=== PATIENT | male | born 1960 | race Caucasian/White ===

== ENCOUNTER 2017-05-10 10:51 | Emergency (ER) | payer BC, OTHER ==
[~2017-05-10] VITALS: Ht 170.2 cm; Wt 84.6 kg
[~2017-05-10 10:51] MED LIST: LORA10CA2 PO; PHEN1POW90 PO
[2017-05-10 10:57] VITALS: TEMP 36.6; Ht 170.2 cm; Wt 84.6 kg
[2017-05-10 11:05] VITALS: O2SAT 95
[2017-05-10 12:14] LABS: BUN/CREATININE RATIO 18.5 (10-20); CREATININE 0.84 mg/dl (0.60-1.40)
--- NOTE | 2017-05-10 12:17 | EMERGENCY ROOM VISIT NOTE ---
History Report prepared by Hesham: Mackenzie Huggins Under the Supervision of: Dr. Julio Cesar Cisneros M.D. First contact with patient: 11:25 Chief Complaint: ALTERED MENTAL STATUS Stated Complaint: LETHARGIC Nursing Triage Summary: pt arrives via ALS per ALS pt was found unresponsive in car he was removed from car found have fixed and dilated pupils was sweaty, lethargic and found to be incontinent In route per EMS he became more alert, was stating he took two Oxycodone two hours before leaving his house to go to get gas He is awake alert and oriented at this time He speech is slurred and he is searching for words He reports no pain He is 77% on RA, 3L applied to increase sats @ 94% History of Present Illness The patient is a 57 year old male who presents to the Emergency Room with complaints of an episode of severe altered mental status starting prior to arrival. According to EMS, the patient was found unresponsive in his car and had fixed dilated pupils. The patient states that he was getting gas. He states that he was very tired this morning because he didn't sleep well last night. The patient notes that he took his Oxycodone for his chronic back pain. He notes that they are 20 mg and he normally only takes 5 a day. The patient denies the use of alcohol, abdominal pain, and thoughts of wanting to hurt himself or others. Source of History: patient, EMS Onset: prior to arrival Position: other (global) Symptom Intensity: severe Quality: other (global) Timing: other (episode) Associated Symptoms: + fatigue, No abdominal pain Note: The patient denies the use of alcohol and wanting to hurt himself or others. Review of Systems See HPI for pertinent positives and negatives. A total of ten systems were reviewed and were otherwise negative. Past Medical & Surgical Medical Problems: (1) Esophageal Reflux (2) Lumbago (3) Spinal Stenosis-Lumbar Family History Patient reports no known family medical history. Social History Smoking Status: Current Every Day Smoker Alcohol Use: none Drug Use: none Marital Status: Housing Status: lives with significant other Occupation Status: employed Current/Historical Medications Scheduled Gabapentin (Neurontin), 300 MG PO BID Ranitidine (Zantac), 150 MG PO BID Scheduled PRN Oxycodone Hcl (Oxycodone Hcl), 20 MG PO 5XD PRN for Pain Allergies Coded Allergies: Hydrocodone (Verified Allergy, Intermediate, HIVES, 02/02/15) Acetaminophen (Verified Allergy, Unknown, HIVES, 02/02/15) Penicillins (Verified Allergy, Unknown, 02/02/15) Morphine (Verified Adverse Reaction, Unknown, GI SYMPTOMS, 02/02/15) Physical Exam Vital Signs Date Time Temp Pulse Resp B/P (MAP) Pulse Ox O2 Delivery O2 Flow Rate FiO2 05/10/17 14:26 76 18 124/86 96 Room Air 05/10/17 13:19 84 05/10/17 13:00 73 14 131/90 94 Nasal Cannula 3.0 05/10/17 12:29 81 16 122/76 94 Room Air 05/10/17 11:10 92 05/10/17 11:05 77 Room Air 05/10/17 11:05 95 Nasal Cannula 3.0 05/10/17 10:57 36.6 94 16 145/100 77 Room Air Physical Exam GENERAL: Drowsy, arousable to loud voice, well-appearing, in no distress HENT: Normocephalic, atraumatic. Dry mucus membranes. EYES: Normal conjunctiva. Sclera non-icteric. Pupils 2mm are sluggish but do react. NECK: Supple. No nuchal rigidity. FROM. No JVD. RESPIRATORY: Clear to auscultation. CARDIAC: Regular rate, normal rhythm. Extremities warm and well perfused. Pulses equal. ABDOMEN: Soft, non-distended. No tenderness to palpation. No rebound or guarding. No masses. RECTAL: Deferred. MUSCULOSKELETAL: Chest examination reveals no tenderness. The back is symmetrical on inspection without obvious abnormality. There is no CVA tenderness to palpation. No joint edema. LOWER EXTREMITIES: Calves are equal size bilaterally and non-tender. No edema. No discoloration. NEURO: Normal sensorium. No sensory or motor deficits noted. Mild slurred speech. No clonus or hyperreflexia. SKIN: Warm, dry No rash or jaundice noted. Medical Decision & Procedures Laboratory Results 05/10/17 10:40 Test 05/10/17 10:40 05/10/17 12:03 Anion Gap 5.0 mmol/L (3-11) Est Creatinine Clear Calc Drug Dose 103.3 ml/min Estimated GFR () 114.2 Estimated GFR (Non- 98.6 BUN/Creatinine Ratio 18.5 (10-20) Calcium Level 9.0 mg/dl (8.5-10.1) Salicylates Level 6.3 mg/dl (2.8-20) Acetaminophen Level < 2 ug/ml (10-30) Ethyl Alcohol mg/dL < 3.0 mg/dl (0-3) Laboratory results reviewed by me ECG Indication: altered mental status Rate (beats per minute): 100 Rhythm: normal sinus Findings: RBBB, other (normal axis) Comparison ECG Date: 07/07/2009 Change: RBBB new. ED Course 1132: The patient was evaluated in room C6. A complete history and physical exam was performed. 1357: I reevaluated the patient and he is doing well. 1427: I reevaluated the patient. Discussed results and discharge instructions: He verbalized understanding and agreement. The patient is ready for discharge. Medical Decision I reviewed the patient's past medical history, medications, and the nursing notes as described above. Differential diagnoses include accidental overdose on narcotics, polysubstance abuse, alcohol intoxication, infection pulmonary vs urinary, meningitis, intracranial hemorrhage. Patient is a 57-year-old gentleman with a past medical history of chronic pain presents to emergency department after being found in his car unresponsive with constricted and sluggish pupils are history of present illness. Arrival the patient is arousable to loud voice with 2 mm pupils that are sluggish. Otherwise patient's exam is unremarkable with no clonus, skin warm dry, no rigidity or hyperreflexia concerning for alternate toxidrome. Exam most consistent with narcotic overdose. Patient reports taking his regular dose of 20 mg of oxycodone early in the morning thinks he did not sleep well last night and thus was particularly tired. Further questioning patient reported that he did stop by a friend's house and had coffee but recalls that his friend had company who he feels he did not know well and may have placed something in his drink. Otherwise patient's labs were unremarkable. EKG with right bundle branch block that is new from 2008. The patient denies any chest pain shortness of breath nausea or vomiting. 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 He expresses understanding. Findings and plan for follow-up d/w patient. Patient agreeable and d/c'd per discharge instructions. Impression Primary Impression: Drug overdose Scribe Attestation The scribe's documentation has been prepared under my direction and personally reviewed by me in its entirety. I confirm that the note above accurately reflects all work, treatment, procedures, and medical decision making performed by me. Departure Information Dispostion Home / Self-Care Referrals No Doctor, Assigned (PCP) Forms HOME CARE DOCUMENTATION FORM, IMPORTANT VISIT INFORMATION Patient Instructions ED Overdose Accidental, My [facility] Additional Instructions Please follow up with your primary care physician in the next 1-3 days. You improved and your exam, ekg, and lab results did not show signs of an emergent condition at this time. Take only your prescribed medications as directed and do not drive when doing so. Return to the emergency department for worsening symptoms as described in the accompanying instructions.
[2017-05-10 12:22] LABS: ACETAMINOPHEN < 2 ug/ml (10-30)
[2017-05-10] MEDS ORDERED: OXYC20TA32 PO (13:56)
[2017-05-10] MEDS ORDERED: ZNTT/150 PO (13:56)
[2017-05-10] MEDS ORDERED: GABA-113 PO (13:56)
[2017-05-10 14:26] VITALS: BP 124/86; PULSE 76; O2SAT 96
== END 2017-05-10 14:28 | disposition home or self-care (01) ==
LOC: EDBD 10:51 → C.EDC 10:52
DX: T40.2X1A Poisoning by other opioids, accidental (unintentional), initial encounter (principal); K21.9 Gastro-esophageal reflux disease without esophagitis; M48.06 Spinal stenosis, lumbar region; F17.210 Nicotine dependence, cigarettes, uncomplicated; Z79.899 Other long term (current) drug therapy